=== PATIENT | female | born 1990 | race Caucasian/White ===

== ENCOUNTER 2016-06-17 21:08 | Emergency (ER) | payer OTHER ==
[~2016-06-17] VITALS: Ht 160 cm; Wt 69.0 kg
[2016-06-17 21:16] VITALS: BP 143/84; PULSE 120; RESP 15; TEMP 98; O2SAT 98
[2016-06-17] MEDS ORDERED: TETANUS/DIPHTHERIA TOXOID ADULT 0.5 ML VIAL IM ONE (22:45)
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
[2016-06-17 22:50] VITALS: BP 135/88; PULSE 89; RESP 15; O2SAT 98
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
[2016-06-17] MEDS ORDERED: ONDANSETRON ODT 4 MG TAB PO ONE (23:15)
[2016-06-17] MEDS ORDERED: ACETAMINOPHEN/HYDROcodone 325 MG/5 MG TAB PO ONE (23:15)
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
[2016-06-18] MEDS ORDERED: IBUP-232 PO (00:06)
[2016-06-18] MEDS ORDERED: ORPH100T99 PO (00:06)
[2016-06-18] MEDS ORDERED: ZOFR4TAB3 SL (00:11)
[2016-06-18] MEDS ORDERED: ONDANSETRON ODT 4 MG TAB PO ONE (00:15)
[2016-06-18 00:23] VITALS: BP 122/74; PULSE 84; RESP 15; O2SAT 97
== END 2016-06-18 00:39 | disposition home or self-care (01) ==
LOC: NEPE 21:08
DX: S09.90XA Unspecified injury of head, initial encounter (principal); R07.89 Other chest pain; M25.552 Pain in left hip; V43.52XA Car driver injured in collision with other type car in traffic accident, initial encounter; Z23 Encounter for immunization
CPT/HCPCS: 70450; 71010; 72072; 72125; 72170; 84703; 90471; 90714; 99284; L0150